=== PATIENT | male | born 1990 | race African-American/Black ===

== ENCOUNTER 2017-07-11 03:41 | Emergency (ER) | payer BC, MEDICAID ==
[~2017-07-11] VITALS: Ht 172.7 cm; Wt 59.0 kg
[2017-07-11 05:15] VITALS: BP 134/80
[2017-07-11] MEDS ORDERED: LIDOCAINE VISCOUS 2% 15ML UD PO ONE (05:30)
== END 2017-07-11 06:06 | disposition home or self-care (01) ==
LOC: ER 03:44
DX: K64.9 Unspecified hemorrhoids (principal)